=== PATIENT | female | born 1950 | race Caucasian/White ===

== ENCOUNTER → 2018-08-26 | Outpatient (CLI) | payer MEDICARE, OTHER | LOC: RAD 13:41 | PROVIDERS: ATTEND Internal Medicine Cardiovascular Disease | DX: Z00.00 Encounter for general adult medical examination without abnormal findings (principal); M79.89 Other specified soft tissue disorders; I10 Essential (primary) hypertension | CPT/HCPCS: 93970 ==

== ENCOUNTER 2019-01-19 15:17 | Emergency (ER) | payer MEDICARE, OTHER ==
[~2019-01-19] VITALS: Ht 172.7 cm; Wt 101.6 kg
--- OUTSIDE RECORDS SUMMARY | 2019-01-19 15:19 | XMS REPORT ---
[facility] Address Unknown Phone Unavailable Care Team Providers Care Dispersion Mixer Name Role Phone Unavailable Unavailable Payers Payer Name Policy Type Policy Number Effective Date Expiration Date Problems This patient has no known problems. Allergies, Adverse Reactions, Alerts This patient has no known allergies or adverse reactions. Medications This patient has no known medications. Results Test Description Test Time Test Comments Text Results Atomic Results Result Comments US THYROID ULTRASOUND 2017-10-24 14:25:02 CLINICAL INDICATION: E21.3 Hyperparathyroidism, unspecifiedTECHNIQUE: Real time and doppler imaging of the thyroid is performed using a high frequency probe on the [employer] Pre[employer].Comparis on Study: Concurrent SPECT CT fusion examination.FINDINGS:Right lobe: 4.2 x 2.0 x 1.5 cm.Left lobe: 3.2 x 1.5 x 1.2 cm.Isthmus: 2.0 mm.Comments: 0.9 x 0.8 cm nodule is noted at the left inferior thyroid.IMPRESSION:Left inferior thyroid 0.9 x 0.8 cm nodule, most suspicious for a parathyroid adenoma in light of parathyroid SPECT CT fusion study.
[2019-01-19] MEDS ORDERED: SODIUM CHLORIDE 0.9% 1000ML 1,000 ML IV STA (17:10)
[2019-01-19] MEDS ORDERED: ONDANSETRON HCL INJ 2MG/ML 2ML 2 MG/ML VIAL IV ONE (17:10)
[2019-01-19 17:31] LABS: BASOPHILS % 0.1 % (0.0-1.0); EOSINOPHILS # (AUTO) 0.1 (0.0-0.4); EOSINOPHILS % 0.6 % (0.0-6.0); HEMATOCRIT 40.5 % (34.2-44.1); HEMOGLOBIN 13.2 g/dL (12.0-16.0); LYMPHOCYTES # (AUTO) 1.4 (1.0-3.2); LYMPHOCYTES % 10.9 % (18.0-39.1); MEAN CORPUSCULAR HEMOGLOBIN 30.5 pg (28-32); MEAN CORPUSCULAR HGB CONC 32.6 g/dL (31-35); MEAN CORPUSCULAR VOLUME 93.5 fL (81-99); MONOCYTES # (AUTO) 0.5 (0.2-0.8); MONOCYTES % 3.8 % (4.4-11.3); NEUTROPHILS # (AUTO) 10.9 (2.1-6.9); NEUTROPHILS % 84.3 % (38.7-80.0); PLATELET COUNT 221 x10e3/uL (140-360); RED BLOOD COUNT 4.33 x10e6/uL (3.6-5.1); RED CELL DISTRIBUTION WIDTH 12.5 % (11.7-14.4)
[2019-01-19 17:46] LABS: BILIRUBIN,URINE NEGATIVE (NEGATIVE); CLARITY,URINE SL CLOUDY (CLEAR); COLOR,URINE YELLOW (YELLOW); KETONES,URINE NEGATIVE (NEGATIVE); LEUKOCYTE ESTERASE ,URINE SMALL (NEGATIVE); NITRITE,URINE NEGATIVE (NEGATIVE); PROTEIN,URINE DIPSTICK NEGATIVE (NEGATIVE); URINE UROBILINOGEN 0.2 mg/dL (0.2 - 1)
[2019-01-19 18:01] LABS: ALBUMIN 3.8 g/dL (3.5-5.0); ALBUMIN/GLOBULIN RATIO 0.9 (0.8-2.0); ANION GAP 14.4 mmol/L (8-16); CALCIUM 8.9 mg/dL (8.4-10.2); CREATINE KINASE 150 IU/L (29-168); CREATININE, SERUM 2.11 mg/dL (0.57-1.11); POTASSIUM 4.4 mmol/L (3.5-5.1)
[2019-01-19 18:08] LABS: BACTERIA,URINE MODERATE /HPF; EPITHELIAL CELLS,URINE FEW /LPF
[2019-01-19 18:12] LABS: CREATINE KINASE MB < 1.00 ng/mL (0-4.3)
--- NOTE | 2019-01-19 22:43 | Diagnostic Imaging Report ---
EXAM: CT Abdomen and Pelvis WITHOUT contrast INDICATION: Abdominal pain, nausea, vomiting, diarrhea COMPARISON: None. TECHNIQUE: Abdomen and pelvis were scanned utilizing a multidetector helical scanner from the lung base to the pubic symphysis without administration of IV contrast. Absence of intravenous contrast decreases sensitivity for detection of focal lesions and vascular pathology. Coronal and sagittal reformations were obtained. Routine protocol was performed. IV CONTRAST: None ORAL CONTRAST: Gastro COMPLICATIONS: None RADIATION DOSE: Total DLP: 854 mGy*cm Estimated effective dose: (DLP x 0.015 x size factor) mSv CTDIvol has been reviewed. It is below the limits set by the Radiation Protocol Committee (RPC). Dose modulation, iterative reconstruction, and/or weight based adjustment of the mA/kV was utilized to reduce the radiation dose to as low as reasonably achievable. FINDINGS: LINES and TUBES: None. LOWER THORAX: Coronary stents. HEPATOBILIARY: No focal hepatic lesions. No biliary ductal dilation. GALLBLADDER: No radio-opaque stones or sludge. No wall thickening. SPLEEN: No splenomegaly. PANCREAS: No focal masses or ductal dilatation. ADRENALS: No adrenal nodules KIDNEYS/URETERS: No hydronephrosis. No cystic or solid mass lesions. No stones. Mild bilateral renal parenchymal volume loss. Mild bilateral perinephric fat stranding can be seen with renal insufficiency or senescence. GI TRACT: No abnormal distention, wall thickening, or evidence of bowel obstruction. Appendix is normal. PELVIC ORGANS/BLADDER: Tubal ligation clips. LYMPH NODES: Slightly prominent mesenteric lymph nodes. No suspicious lymphadenopathy. VESSELS: There is moderate atherosclerotic disease in the aorta and major arterial branches. PERITONEUM / RETROPERITONEUM: Haziness of the mesenteric root. No free air or fluid. BONES: There are degenerative changes in the spine. SOFT TISSUES: A 7.8 cm periumbilical fat-containing hernia through a 2.1 cm peritoneal defect, without signs of strangulation. IMPRESSION: 1. Mild haziness of the mesenteric root fat and slightly prominent but subcentimeter mesenteric lymph nodes is nonspecific but can be seen with mesenteric panniculitis or potentially with a gastrointestinal infectious/inflammatory process, however no direct evidence of gastrointestinal inflammation. 2. A 7.8 cm periumbilical fat-containing hernia through a 2.1 cm peritoneal defect, without signs of strangulation. 3. Coronary stents. 4. Bilateral renal atrophy. 5. Advanced degenerative changes in the spine. Signed by: Juve Tucker DO on 01/19/2019 10:40 PM
== END 2019-01-19 23:24 | disposition home or self-care (01) ==
LOC: ER 15:17
DX: R10.84 Generalized abdominal pain (principal); R11.2 Nausea with vomiting, unspecified; R19.7 Diarrhea, unspecified; N39.0 Urinary tract infection, site not specified
CPT/HCPCS: 36415; 74176; 80053; 81001; 82550; 82553; 84484; 85025; 99284; J2405; J7030

== ENCOUNTER → 2019-01-23 | Outpatient (CLI) | payer MEDICARE, OTHER ==
--- NOTE | 2019-01-26 10:46 | Diagnostic Imaging Report ---
MRI SPINE LUMBAR WO HISTORY: Lumbar sprain COMPARISON: CT of the abdomen and pelvis 01/19/2019 TECHNIQUE: Sagittal T1, sagittal T2, sagittal STIR, coronal T2, and axial T2 weighted images of the lumbar spine were obtained without contrast. The patient was unable to complete the examination (per technologist notes). DISCUSSION: Number of non-rib bearing lumbar vertebral bodies: 5. Alignment: Normal lordosis. No scoliosis. Vertebrae: No fractures, or neoplasm. Conus medullaris: Normal, ends at L1-L2 Cauda equina: No masses or arachnoiditis. Posterior paraspinal muscles: There is mild paraspinal muscle atrophy at the lumbosacral junction. Soft tissues: No signal abnormalities. Mild to moderate multilevel disc degeneration is present. Nonspecific mild multilevel inflammatory endplate changes are most prominent on the left at L4-L5. T12-L1: Disc bulge without significant canal or foraminal stenosis. L1-L2: There is mild retrolisthesis of L1 on L2. Disc bulge without significant canal or foraminal stenosis. L2-L3: There is mild retrolisthesis of L2 on L3. Mild canal stenosis due to disc bulge and ligamentum flavum thickening. Mild bilateral foraminal stenoses due to disc bulge and facet arthrosis. L3-L4: There is mild retrolisthesis of L3 on L4. Mild canal stenosis due to disc bulge and ligamentum flavum thickening. Mild bilateral foraminal stenoses due to disc bulge and facet arthrosis. L4-L5: There is minimal grade 1 anterolisthesis of L4 on L5 due to facet arthrosis. Mild canal stenosis due to uncovered disc bulge and ligamentum flavum thickening. Mild right and mild to moderate left foraminal stenoses due to uncovered disc bulge and facet arthrosis. The disc bulge may contact the exiting left L4 nerve root. There is periarticular edema along the L4-L5 facet joints, left greater than right. L5-S1: Mild bilateral foraminal stenoses due to disc bulge and facet arthrosis. No significant canal stenosis. IMPRESSION: 1. Mild to moderate multilevel disc degeneration. Nonspecific mild multilevel inflammatory endplate changes, most prominent on the left at L4-L5. 2. Minimal grade 1 anterolisthesis of L4 on L5 due to facet arthrosis. Suspected L4-L5 facet synovitis, left greater than right. 3. Multilevel bilateral degenerative foraminal stenoses - mild to moderate on the left at L4-L5. 4. Mild degenerative canal stenoses from L2-L3 to L4-L5. Signed by: Dr. Franky Hilliard M.D. on 01/26/2019 10:43 AM
== END ==
LOC: MRI 14:28
PROVIDERS: ATTEND Family Medicine
DX: S33.5XXA Sprain of ligaments of lumbar spine, initial encounter (principal)
CPT/HCPCS: 72148

== ENCOUNTER → 2020-02-03 | Outpatient (CLI) | payer MEDICARE, OTHER ==
--- NOTE | 2020-02-03 14:38 | Diagnostic Imaging Report ---
Examination: MRI SPINE LUMBAR WO History: ^DEGENERATIVE JOINT DISEASE OF LUMBAR Comparison studies: Lumbar spine MRI performed January 23, 2019 Technique: Sagittal, coronal and axial T2 , sagittal T1 and STIR; axial spin density oblique. Findings: Number of lumbar vertebral bodies: Five. Alignment: Normal lordosis. No scoliosis. Soft tissues: No T2 hyperintense inflammatory changes. Posterior paraspinal soft tissues and muscles: No abnormality. Lower thoracic cord: Normal in signal and morphology. The tip of the conus is at L1-L2. Cauda equina: No masses. No arachnoiditis. Vertebrae: No fractures, infection or neoplasm. Degenerative changes: T12-L1: Mild diffuse bulge. No foraminal or canal stenosis. L1-L2: Mild retrolisthesis. Mild diffuse bulge. No foraminal or canal stenosis. L2-L3: Mild retrolisthesis. Mild diffuse disc bulge and bilateral facet arthropathy result in mild bilateral neural foraminal narrowing and mild canal stenosis. L3-L4: Mild retrolisthesis. Mild diffuse disc bulge, ligamentum flavum thickening and bilateral facet arthropathy result in mild canal stenosis and mild bilateral neural foraminal narrowing. L4-L5: Grade 1 anterolisthesis. No pars defect. Uncovering of a diffuse disc bulge, ligamentum flavum thickening and bilateral facet arthropathy result in mild right and moderate left neural foraminal narrowing and mild canal stenosis. L5-S1: Mild diffuse disc bulge and facet arthropathy result in mild bilateral neural foraminal narrowing. No canal stenosis. IMPRESSION: No new abnormality when compared to prior lumbar spine MRI from January 23, 2019. Unchanged degenerative changes from T12-L1 through L5-S1 with moderate left foraminal narrowing at L4-L5. Degenerative grade 1 anterolisthesis of L4 on L5, unchanged. Mild retrolisthesis from L1 through L4, unchanged. Signed by: Dr. Isabel Alas M.D. on 02/03/2020 2:34 PM
== END ==
LOC: MRI 10:19
PROVIDERS: ATTEND Family Medicine
DX: M47.816 Spondylosis without myelopathy or radiculopathy, lumbar region (principal)
CPT/HCPCS: 72148

== ENCOUNTER 2020-03-20 16:46 | Emergency (ER) | payer MEDICARE, OTHER ==
[~2020-03-20] VITALS: Ht 172.7 cm; Wt 101.6 kg
[2020-03-20 18:43] LABS: BASOPHILS % 0.2 % (0.0-1.0); EOSINOPHILS % 0.7 % (0.0-6.0); HEMATOCRIT 35.9 % (34.2-44.1); HEMOGLOBIN 11.9 g/dL (12.0-16.0); LYMPHOCYTES # (AUTO) 1.3 (1.0-3.2); LYMPHOCYTES % 30.6 % (18.0-39.1); MEAN CORPUSCULAR HEMOGLOBIN 30.5 pg (28-32); MEAN CORPUSCULAR HGB CONC 33.1 g/dL (31-35); MEAN CORPUSCULAR VOLUME 92.1 fL (81-99); MONOCYTES # (AUTO) 0.4 (0.2-0.8); MONOCYTES % 8.8 % (4.4-11.3); NEUTROPHILS # (AUTO) 2.6 (2.1-6.9); NEUTROPHILS % 59.2 % (38.7-80.0); PLATELET COUNT 131 x10e3/uL (140-360); RED CELL DISTRIBUTION WIDTH 13.2 % (11.7-14.4)
[2020-03-20 18:56] LABS: ALBUMIN 3.3 g/dL (3.5-5.0); CALCIUM 8.3 mg/dL (8.4-10.2); CREATININE, SERUM 2.19 mg/dL (0.57-1.11)
[2020-03-20 19:08] VITALS: BP 119/63
== END 2020-03-20 19:13 | disposition home or self-care (01) ==
LOC: ER 17:10
DX: J40 Bronchitis, not specified as acute or chronic (principal); I10 Essential (primary) hypertension; E11.9 Type 2 diabetes mellitus without complications; Z95.5 Presence of coronary angioplasty implant and graft
CPT/HCPCS: 36415; 71045; 80053; 83880; 85025; 93005; 99283

== ENCOUNTER 2022-06-27 12:22 | Emergency (ER) | payer MEDICARE, OTHER ==
[~2022-06-27] VITALS: Ht 172.7 cm; Wt 101.6 kg
[2022-06-27] MEDS ORDERED: SODIUM CHLORIDE 0.9% 1000ML 1,000 ML IV STA (12:47)
[2022-06-27 12:53] LABS: BASOPHILS % 0.5 % (0.0-1.0); EOSINOPHILS # (AUTO) 0.2 (0.0-0.4); EOSINOPHILS % 2.8 % (0.0-6.0); HEMATOCRIT 34.6 % (34.2-44.1); HEMOGLOBIN 11.7 g/dL (12.0-16.0); LYMPHOCYTES # (AUTO) 1.9 (1.0-3.2); LYMPHOCYTES % 23.3 % (18.0-39.1); MEAN CORPUSCULAR HEMOGLOBIN 31.6 pg (28-32); MEAN CORPUSCULAR HGB CONC 33.8 g/dL (31-35); MEAN CORPUSCULAR VOLUME 93.5 fL (81-99); MONOCYTES # (AUTO) 0.5 (0.2-0.8); MONOCYTES % 5.8 % (4.4-11.3); NEUTROPHILS # (AUTO) 5.4 (2.1-6.9); NEUTROPHILS % 67.2 % (38.7-80.0); PLATELET COUNT 200 x10e3/uL (140-360); RED CELL DISTRIBUTION WIDTH 12.4 % (11.7-14.4)
[2022-06-27 13:01] LABS: INR 0.96; PROTHROMBIN TIME 13.3 seconds (11.9-14.5)
[2022-06-27 13:02] LABS: PARTIAL THROMBOPLASTIN TIME 27.7 seconds (23.8-35.5)
[2022-06-27 13:09] LABS: ALANINE AMINOTRANSFERASE 19 IU/L (0-55); ALBUMIN 3.6 g/dL (3.5-5.0); ALBUMIN/GLOBULIN RATIO 1.1 (0.8-2.0); ALKALINE PHOSPHATASE 69 IU/L (40-150); ANION GAP 16.4 mmol/L (8-16); BLOOD UREA NITROGEN 49 mg/dL (7-26); BUN/CREATININE RATIO 26 (6-25); CALCIUM 9.5 mg/dL (8.4-10.2); CARBON DIOXIDE 23 mmol/L (22-29); CHLORIDE 102 mmol/L (98-107); CREATINE KINASE 106 IU/L (29-168); CREATININE, SERUM 1.85 mg/dL (0.57-1.11); GLUCOSE 310 mg/dL (74-118); POTASSIUM 4.4 mmol/L (3.5-5.1); SODIUM 137 mmol/L (136-145)
[2022-06-27 14:59] VITALS: BP 135/78
== END 2022-06-27 15:00 | disposition home or self-care (01) ==
LOC: ER 12:26
DX: S00.83XA Contusion of other part of head, initial encounter (principal); S80.211A Abrasion, right knee, initial encounter; W01.198A Fall on same level from slipping, tripping and stumbling with subsequent striking against other object, initial encounter; Y93.01 Activity, walking, marching and hiking; Y99.0 Civilian activity done for income or pay; I12.9 Hypertensive chronic kidney disease with stage 1 through stage 4 chronic kidney disease, or unspecified chronic kidney disease; E11.22 Type 2 diabetes mellitus with diabetic chronic kidney disease; E11.65 Type 2 diabetes mellitus with hyperglycemia; N18.9 Chronic kidney disease, unspecified; R94.31 Abnormal electrocardiogram [ECG] [EKG]
CPT/HCPCS: 36415; 70450; 71046; 72125; 80053; 82550; 82553; 84484; 85025; 85610; 85730; 93005; 99283

== ENCOUNTER 2022-07-11 06:23 | Emergency (ER) | payer MEDICARE, OTHER ==
[~2022-07-11] VITALS: Ht 172.7 cm; Wt 98.9 kg
[2022-07-11] MEDS ORDERED: ONDANSETRON HCL INJ 2MG/ML 2ML 2 MG/ML VIAL IV STA (06:36)
[2022-07-11 07:15] LABS: BASOPHILS % 0.4 % (0.0-1.0); EOSINOPHILS # (AUTO) 0.1 (0.0-0.4); EOSINOPHILS % 1.9 % (0.0-6.0); HEMATOCRIT 36.7 % (34.2-44.1); HEMOGLOBIN 11.9 g/dL (12.0-16.0); LYMPHOCYTES # (AUTO) 1.7 (1.0-3.2); LYMPHOCYTES % 23.4 % (18.0-39.1); MEAN CORPUSCULAR HEMOGLOBIN 31.8 pg (28-32); MEAN CORPUSCULAR HGB CONC 32.4 g/dL (31-35); MEAN CORPUSCULAR VOLUME 98.1 fL (81-99); MONOCYTES # (AUTO) 0.5 (0.2-0.8); MONOCYTES % 6.5 % (4.4-11.3); NEUTROPHILS % 67.5 % (38.7-80.0); PLATELET COUNT 215 x10e3/uL (140-360); RED BLOOD COUNT 3.74 x10e6/uL (3.6-5.1); RED CELL DISTRIBUTION WIDTH 12.4 % (11.7-14.4)
[2022-07-11 07:41] LABS: ALBUMIN 3.6 g/dL (3.5-5.0); ALBUMIN/GLOBULIN RATIO 0.9 (0.8-2.0); ANION GAP 13.3 mmol/L (8-16); CALCIUM 9.6 mg/dL (8.4-10.2); CREATININE, SERUM 1.6 mg/dL (0.57-1.11); POTASSIUM 4.3 mmol/L (3.5-5.1)
[2022-07-11] MEDS ORDERED: ONDANSETRON ODT4 MG PO (07:56)
== END 2022-07-11 08:21 | disposition home or self-care (01) ==
LOC: ER 06:30
DX: R11.2 Nausea with vomiting, unspecified (principal); K52.9 Noninfective gastroenteritis and colitis, unspecified; R94.31 Abnormal electrocardiogram [ECG] [EKG]
CPT/HCPCS: 36415; 80053; 84484; 85025; 93005; 99283; J2405